=== PATIENT | male | born 1965 | race African-American/Black ===

== ENCOUNTER 2017-04-14 22:54 | Emergency (ER) | payer OTHER ==
--- NOTE | 2017-04-15 00:47 | ER Document Report ---
ED Medical Screen (RME) - General Chief Complaint: Redness of Eye Stated Complaint: EYE PAIN Time Seen by Provider: 04/15/17 00:45 Notes: 51-year-old male, chief complaint of left eye pain that started this morning. Denies trauma, denies scratching his eye, does not wear visual correction. He states he feels like there is something stuck in his eye and he keeps draining clear fluid from the eye. He also reports pain around the top of his eye. He denies any other symptoms or concerns. TRAVEL OUTSIDE OF THE [place] IN LAST 30 DAYS: No - Related Data Allergies/Adverse Reactions: No Known Allergies Allergy (Verified 04/15/17 00:44) Past Medical History Pulmonary Medical History: Reports: Hx Asthma - Immunizations Hx Diphtheria, Pertussis, Tetanus Vaccination: Yes Physical Exam - HEENT Eyes: Tears Conjunctiva: Injected, Other - Patient winces with pain when I lift his upper eyelid. No: Purulent discharge Eyelashes: Normal Pupils: PERRL
[2017-04-15] MEDS ORDERED: HYDROCODONE/ACETAMINOPHEN 5-325 MG (6 TAB/ER DISP) PO PRN (02:32)
[2017-04-15] MEDS ORDERED: POLYMYXIN B SULFATE/TMP OPH SOLN (10 ML/ER DISP) OS ONE (02:32)
--- NOTE | 2017-04-15 02:38 | ER Document Report ---
ED Eye Complaint - General Chief Complaint: Redness of Eye Stated Complaint: EYE PAIN Time Seen by Provider: 04/15/17 00:45 Notes: Patient is a 51-year-old male, chief complaint of left eye pain that started this morning. Denies trauma, denies scratching his eye, does not wear visual correction. He denies loss of vision. He states he feels like there is something stuck in his eye and he keeps draining clear fluid from the eye. He also reports pain around the top of his eye. He denies any other symptoms or concerns. TRAVEL OUTSIDE OF THE [place] IN LAST 30 DAYS: No - Related Data Allergies/Adverse Reactions: No Known Allergies Allergy (Verified 04/15/17 00:44) Past Medical History - General Information source: Patient - Social History Smoking Status: Never Smoker Chew tobacco use (# tins/day): No Drug Abuse: None Lives with: Alone Family History: Reviewed & Not Pertinent Patient has suicidal ideation: No Patient has homicidal ideation: No Pulmonary Medical History: Reports: Hx Asthma - bronchitis Renal/ Medical History: Denies: Hx Peritoneal Dialysis Surgical Hx: Negative - Immunizations Hx Diphtheria, Pertussis, Tetanus Vaccination: Yes Review of Systems - Review of Systems Constitutional: No symptoms reported EENT: See HPI Cardiovascular: No symptoms reported Respiratory: No symptoms reported Gastrointestinal: No symptoms reported Genitourinary: No symptoms reported Male Genitourinary: No symptoms reported Musculoskeletal: No symptoms reported Skin: No symptoms reported Hematologic/Lymphatic: No symptoms reported Neurological/Psychological: No symptoms reported Physical Exam - Vital signs Vitals: Temp Pulse Resp BP Pulse Ox 98.6 F 82 18 153/104 H 98 04/15/17 00:43 04/15/17 00:43 04/15/17 00:43 04/15/17 00:43 04/15/17 00:43 Interpretation: Normal - General General appearance: Appears well, Alert In distress: None - HEENT Head: Normocephalic, Atraumatic Eyes: Normal Conjunctiva: Injected - Minimally injected in the left eye Cornea: Corneal abrasion - Small corneal abrasion at the 1 o'clock position in the left eye, no foreign bodies, dendrites, negative Ilene sign, otherwise unremarkable exam Extraocular movements intact: Yes Eyelashes: Normal Pupils: PERRL Visual acuity- Right eye: 20/25 Visual acuity- Left eye: 20/25 Visual acuity- Both eyes: 20/25 Corrective lenses worn: No Anterior chamber: Normal Ears: Normal Sinus: Normal Nasal: Normal Mouth/Lips: Normal Mucous membranes: Normal Pharynx: Normal Neck: Normal - Respiratory Respiratory status: No respiratory distress Chest status: Nontender Breath sounds: Normal Chest palpation: Normal - Cardiovascular Rhythm: Regular Heart sounds: Normal auscultation Murmur: No - Abdominal Inspection: Normal Distension: No distension Bowel sounds: Normal Tenderness: Nontender Organomegaly: No organomegaly - Back Back: Normal, Nontender - Extremities General upper extremity: Normal inspection, Nontender, Normal color, Normal ROM , Normal temperature General lower extremity: Normal inspection, Nontender, Normal color, Normal ROM , Normal temperature, Normal weight bearing - Neurological Neuro grossly intact: Yes Cognition: Normal Orientation: AAOx4 Bony Coma Scale Eye Opening: Spontaneous Bony Coma Scale Verbal: Oriented Bony Coma Scale Motor: Obeys Commands Bony Coma Scale Total: 15 Speech: Normal Motor strength normal: LUE, RUE, LLE, RLE Sensory: Normal - Psychological Associated symptoms: Normal affect, Normal mood - Skin Skin Temperature: Warm Skin Moisture: Dry Skin Color: Normal Course - Re-evaluation Re-evalutation: Normal visual acuity. Well-appearing patient. On examination there are no foreign bodies or concerning signs of infection, however there is a small corneal abrasion. No other abnormalities noted. No headache. Unsure of the exact source although patient thinks he scratched himself during his sleep. Giving antibiotics, referral to ophthalmology, discussed treatment, follow-up, return precautions. Patient states understanding and agreement. - Vital Signs Vital signs: Temp Pulse Resp BP Pulse Ox 98.6 F 87 16 149/96 H 98 04/15/17 02:53 04/15/17 02:53 04/15/17 02:53 04/15/17 02:53 04/15/17 02:53 Discharge - Discharge Clinical Impression: Left eye pain Condition: Stable Disposition: HOME, SELF-CARE Additional Instructions: Your examination indicates a corneal abrasion. This should heal with time, please use the antibiotic drops given tonight, use 1 drop, 4 times a day, for 5 days. Follow-up with ophthalmology referral for additional evaluation and management. Return if you worsen including developing redness or swelling of the eye/eyelids , loss of vision, fever, or any other concerning symptoms. Forms: Return to Work Referrals: MICHELL ROWE MD [ACTIVE STAFF] - 04/16/17
[2017-04-15 02:55] VITALS: BP 149/96
== END 2017-04-15 02:54 | disposition home or self-care (01) ==
LOC: ER 22:54
DX: H57.12 Ocular pain, left eye (principal)
CPT/HCPCS: 99282; J3490